=== PATIENT | female | born 1945 | race Asian ===

== ENCOUNTER 2023-03-17 09:53 | Inpatient (IN) | payer OTHER ==
[2023-03-17] MEDS ORDERED: ONDANSETRON 4 MG/2 ML VIAL IVPUSH ONE (10:44)
[2023-03-17] MEDS ORDERED: SODIUM CHLORIDE 0.9% 500 ML INFUS.BAG IV ONE (10:44)
[2023-03-17] MEDS ORDERED: ONDANSETRON 4 MG/2 ML VIAL ONE (11:06)
[2023-03-17 11:39] LABS: BASO % 0.9 % (0-2.0); EOS % 0.1 % (0-4.5); HEMATOCRIT 36.5 % (32.4-45.2); HEMOGLOBIN 12.2 GM/dL (10.7-15.3); LYMPH % 16.4 % (8-40); MCHC 33.5 g/dl (32.0-36.0); MEAN CELL VOLUME 89.5 fl (80-96); MEAN PLT VOLUME 7.5 fl (7.5-11.1); MONO % 14.4 % (3.8-10.2); NEUT % 68.2 % (42.8-82.8); PLATELET COUNT 309 10^3/uL (134-434); RBC 4.08 M/mm3 (3.60-5.2); RDW 13.1 % (11.6-15.6); WHITE BLOOD COUNT 4.2 K/mm3 (4.0-10.0)
[2023-03-17 11:55] LABS: EPI CELLS 2 /uL (0-25.1); HYALINE CASTS 1 /uL (0-3.1); URINE APPEARANCE CLEAR; URINE BACTERIA >9,000 /uL (0-1359); URINE BILIRUBIN NEGATIVE (NEGATIVE); URINE COLOR YELLOW; URINE GLUCOSE (UA) NEGATIVE (NEGATIVE); URINE KETONE NEGATIVE (NEGATIVE); URINE LEUK ESTERASE 1+ (NEGATIVE); URINE NITRITE POSITIVE (NEGATIVE); URINE PROTEIN NEGATIVE (NEGATIVE); URINE RBC 13 /uL (0-23.9); URINE UROBILINOGEN 0.2 mg/dL (0.2-1.0); URINE WBC 161 /uL (0-25.8)
[2023-03-17 12:00] LABS: POTASSIUM 4.3 mmol/L (3.5-5.1)
[2023-03-17 12:02] LABS: ALBUMIN 3.4 g/dl (3.4-5.0); BLOOD UREA NITROGEN 16.1 mg/dL (7-18); CALCIUM 9.4 mg/dL (8.5-10.1)
[2023-03-17 12:05] LABS: CREATININE 0.7 mg/dL (0.55-1.3)
[2023-03-17 12:07] LABS: BILIRUBIN,TOTAL 0.2 mg/dL (0.2-1); TOT PROT 8.2 g/dl (6.4-8.2)
[2023-03-17] MEDS ORDERED: ONDANSETRON 4 MG/2 ML VIAL IVPUSH PRN (15:53)
[2023-03-17 18:43] VITALS: BMI 28.3
[2023-03-17 21:27] LABS: BLOOD UREA NITROGEN 14.6 mg/dL (7-18); CALCIUM 8.9 mg/dL (8.5-10.1)
[2023-03-17 21:31] LABS: CREATININE 0.8 mg/dL (0.55-1.3)
[2023-03-18] MEDS: ENOXAPARIN NA (PORCINE) 40 MG/0.4 ML DISP.SYRIN SQ SCH (09:49)
[2023-03-18] MEDS: amLODIPine BESYLATE 10 MG TABLET (FP) PO SCH (09:49)
[2023-03-18] MEDS: LOSARTAN POTASSIUM 25 MG TABLET PO SCH (09:50)
[2023-03-18] MEDS: CEFTRIAXONE 1 GM in DEXTROSE 5%-WATER - 50 ML IVPB SCH (09:50)
[2023-03-18 09:57] LABS: BASO % 1.1 % (0-2.0); EOS % 0.3 % (0-4.5); HEMATOCRIT 38.9 % (32.4-45.2); HEMOGLOBIN 12.8 GM/dL (10.7-15.3); LYMPH % 29.7 % (8-40); MCH 29.9 pg (25.7-33.7); MEAN CELL VOLUME 90.6 fl (80-96); MEAN PLT VOLUME 7.5 fl (7.5-11.1); MONO % 13.3 % (3.8-10.2); NEUT % 55.6 % (42.8-82.8); PLATELET COUNT 335 10^3/uL (134-434); RBC 4.29 M/mm3 (3.60-5.2); WHITE BLOOD COUNT 3.9 K/mm3 (4.0-10.0)
[2023-03-18 10:07] LABS: POTASSIUM 4.1 mmol/L (3.5-5.1)
[2023-03-18 10:12] LABS: ALBUMIN 3.4 g/dl (3.4-5.0); CALCIUM 9.3 mg/dL (8.5-10.1); MAGNESIUM 2.3 mg/dL (1.8-2.4)
[2023-03-18 10:14] LABS: BLOOD UREA NITROGEN 18.5 mg/dL (7-18)
[2023-03-18 10:15] LABS: PHOSPHOROUS 3.6 mg/dL (2.5-4.9)
[2023-03-18 10:16] LABS: BILIRUBIN,TOTAL 0.2 mg/dL (0.2-1); CREATININE 0.8 mg/dL (0.55-1.3)
[2023-03-18] MEDS ORDERED: guaiFENesin 200 MG/10 ML 10 ML UNIT-DOSE CUPS PO PRN (10:49)
[2023-03-18] MEDS ORDERED: REMDESIVIR 200 MG in SODIUM CHLORIDE 250 ML IVPB ONE (17:30)
[2023-03-19 08:25] LABS: BASO % 1.2 % (0-2.0); EOS % 0.7 % (0-4.5); HEMATOCRIT 37.9 % (32.4-45.2); HEMOGLOBIN 12.3 GM/dL (10.7-15.3); LYMPH % 31.1 % (8-40); MCH 29.8 pg (25.7-33.7); MCHC 32.5 g/dl (32.0-36.0); MEAN CELL VOLUME 91.8 fl (80-96); MEAN PLT VOLUME 8.3 fl (7.5-11.1); MONO % 12.1 % (3.8-10.2); NEUT % 54.9 % (42.8-82.8); PLATELET COUNT 332 10^3/uL (134-434); RBC 4.13 M/mm3 (3.60-5.2); WHITE BLOOD COUNT 4.1 K/mm3 (4.0-10.0)
[2023-03-19 08:54] LABS: POTASSIUM 3.8 mmol/L (3.5-5.1)
[2023-03-19 09:05] LABS: ALBUMIN 3.2 g/dl (3.4-5.0); BLOOD UREA NITROGEN 20.4 mg/dL (7-18); CALCIUM 9.2 mg/dL (8.5-10.1); MAGNESIUM 2.4 mg/dL (1.8-2.4)
[2023-03-19 09:07] LABS: CREATININE 0.8 mg/dL (0.55-1.3)
[2023-03-19 09:09] LABS: BILIRUBIN,TOTAL 0.3 mg/dL (0.2-1); TOT PROT 7.8 g/dl (6.4-8.2)
[2023-03-19] MEDS ORDERED: REMDESIVIR 100 MG in SODIUM CHLORIDE 270 ML IVPB SCH (10:00)
[2023-03-19] MEDS ORDERED: ALBUTEROL SO4 2.5/IPRATROPIUM 0.5 INH SOL 3 ML VIAL.NEB. NEB PRN (10:32)
[2023-03-19] MEDS ORDERED: BENZOCAINE/MENTH/CETYLPYRD CL 1 EACH LOZENGE MM PRN (10:32)
[2023-03-19] MEDS ORDERED: SODIUM CHLORIDE FOR INHALATION 3 ML VIAL.NEB IH PRN (10:32)
[2023-03-19] MEDS: LOSARTAN POTASSIUM 25 MG TABLET PO SCH (10:43)
[2023-03-19] MEDS: amLODIPine BESYLATE 10 MG TABLET (FP) PO SCH (10:43)
[2023-03-19] MEDS: CEFTRIAXONE 1 GM in DEXTROSE 5%-WATER - 50 ML IVPB SCH (10:43)
[2023-03-19] MEDS: ENOXAPARIN NA (PORCINE) 40 MG/0.4 ML DISP.SYRIN SQ SCH (10:43)
[2023-03-19] MEDS: REMDESIVIR 100 MG in SODIUM CHLORIDE 250 ML IVPB SCH (12:16)
[2023-03-20 09:02] LABS: BASO % 1.3 % (0-2.0); EOS % 0.5 % (0-4.5); HEMATOCRIT 35.9 % (32.4-45.2); HEMOGLOBIN 11.9 GM/dL (10.7-15.3); LYMPH % 37.3 % (8-40); MCH 29.9 pg (25.7-33.7); MCHC 33.1 g/dl (32.0-36.0); MEAN CELL VOLUME 90.4 fl (80-96); MEAN PLT VOLUME 7.8 fl (7.5-11.1); MONO % 9.7 % (3.8-10.2); NEUT % 51.2 % (42.8-82.8); PLATELET COUNT 299 10^3/uL (134-434); RBC 3.97 M/mm3 (3.60-5.2); RDW 13.5 % (11.6-15.6); WHITE BLOOD COUNT 3.5 K/mm3 (4.0-10.0)
[2023-03-20 09:27] LABS: POTASSIUM 4.2 mmol/L (3.5-5.1)
[2023-03-20 09:28] LABS: BLOOD UREA NITROGEN 21.6 mg/dL (7-18); CALCIUM 8.7 mg/dL (8.5-10.1); MAGNESIUM 2.4 mg/dL (1.8-2.4)
[2023-03-20 09:29] LABS: ALBUMIN 3.1 g/dl (3.4-5.0)
[2023-03-20 09:32] LABS: CREATININE 0.8 mg/dL (0.55-1.3)
[2023-03-20 09:33] LABS: BILIRUBIN,TOTAL 0.2 mg/dL (0.2-1); TOT PROT 7.1 g/dl (6.4-8.2)
[2023-03-20] MEDS: LOSARTAN POTASSIUM 25 MG TABLET PO SCH (09:33)
[2023-03-20] MEDS: amLODIPine BESYLATE 10 MG TABLET (FP) PO SCH (09:33)
[2023-03-20] MEDS: REMDESIVIR 100 MG in SODIUM CHLORIDE 250 ML IVPB SCH (09:33)
[2023-03-20] MEDS: ENOXAPARIN NA (PORCINE) 40 MG/0.4 ML DISP.SYRIN SQ SCH (09:34)
[2023-03-20] MEDS: CEFTRIAXONE 1 GM in DEXTROSE 5%-WATER - 50 ML IVPB SCH (09:35)
[2023-03-21 07:28] VITALS: RESP 18
[2023-03-21 09:11] LABS: BASO % 0.9 % (0-2.0); EOS % 0.6 % (0-4.5); HEMATOCRIT 36.9 % (32.4-45.2); HEMOGLOBIN 12.3 GM/dL (10.7-15.3); LYMPH % 32.3 % (8-40); MCH 30.4 pg (25.7-33.7); MCHC 33.2 g/dl (32.0-36.0); MEAN CELL VOLUME 91.7 fl (80-96); MEAN PLT VOLUME 7.8 fl (7.5-11.1); MONO % 9.2 % (3.8-10.2); PLATELET COUNT 311 10^3/uL (134-434); RBC 4.03 M/mm3 (3.60-5.2); RDW 13.4 % (11.6-15.6); WHITE BLOOD COUNT 4.5 K/mm3 (4.0-10.0)
[2023-03-21] MEDS: amLODIPine BESYLATE 10 MG TABLET (FP) PO SCH (09:17)
[2023-03-21] MEDS: LOSARTAN POTASSIUM 25 MG TABLET PO SCH (09:17)
[2023-03-21] MEDS: CEFTRIAXONE 1 GM in DEXTROSE 5%-WATER - 50 ML IVPB SCH (09:18)
[2023-03-21] MEDS: ENOXAPARIN NA (PORCINE) 40 MG/0.4 ML DISP.SYRIN SQ SCH (09:18)
[2023-03-21 09:26] LABS: POTASSIUM 4.3 mmol/L (3.5-5.1)
[2023-03-21 09:29] LABS: ALBUMIN 3.1 g/dl (3.4-5.0); BLOOD UREA NITROGEN 18.2 mg/dL (7-18); CALCIUM 8.8 mg/dL (8.5-10.1); MAGNESIUM 2.4 mg/dL (1.8-2.4)
[2023-03-21 09:32] LABS: CREATININE 0.7 mg/dL (0.55-1.3)
[2023-03-21 09:33] LABS: BILIRUBIN,TOTAL 0.2 mg/dL (0.2-1); TOT PROT 7.4 g/dl (6.4-8.2)
[2023-03-21] MEDS ORDERED: CEPHALEXIN MONOHYDRATE 500 MG CAPSULE (UD) PO ONE (10:30)
[2023-03-21 10:53] VITALS: BP 127/54; PULSE 56; TEMP 98.3
== END 2023-03-21 13:03 | disposition home health service (06) | DRG 178 ==
LOC: JER 09:53 → JERBED 15:10 → OBSVTOIN 15:43 → J8W 18:13
PROVIDERS: ADMIT Internal Medicine; ATTEND Nurse Practitioner Acute Care
PROC: XW033E5 Introduction of Remdesivir Anti-infective into Peripheral Vein, Percutaneous Approach, New Technology Group 5 (ICD-10-PCS; principal; 2023-03-17)
DX: U07.1 COVID-19 (principal); E87.1 Hypo-osmolality and hyponatremia; N39.0 Urinary tract infection, site not specified; E86.0 Dehydration; I10 Essential (primary) hypertension
CPT/HCPCS: 0241U-QW; 36415; 71045-TC-FY; 80048; 80053; 81003; 82436; 82570; 83690; 83735; 84100; 84300; 84484; 85025; 86140; 87086; 87186; 93005; 93010; 99285-25; C9399; G0378

== ENCOUNTER 2023-05-05 23:47 | Observation (INO) | payer OTHER ==
[2023-05-06 00:02] VITALS: BMI 36.2
[2023-05-06] MEDS ORDERED: dilTIAZem HCL 50 MG/10 ML - 10 ML VIAL IVPUSH ONE (00:32)
[2023-05-06] MEDS ORDERED: DEXAMETHASONE SOD PHOSPHATE 10 MG/1 ML VIAL IVPUSH ONE (00:33)
[2023-05-06] MEDS ORDERED: dilTIAZem HCL 125 MG/25 ML - 25 ML VIAL ONE (00:52)
[2023-05-06] MEDS ORDERED: DEXAMETHASONE SOD PHOSPHATE 10 MG/1 ML VIAL ONE (00:52)
[2023-05-06 01:46] LABS: BASO % 0.7 % (0-2.0); EOS % 2.7 % (0-4.5); HEMOGLOBIN 12.4 GM/dL (10.7-15.3); MCH 30.5 pg (25.7-33.7); MCHC 33.6 g/dl (32.0-36.0); MEAN PLT VOLUME 7.4 fl (7.5-11.1); MONO % 7.8 % (3.8-10.2); NEUT % 70.8 % (42.8-82.8); PLATELET COUNT 391 10^3/uL (134-434); RBC 4.07 M/mm3 (3.60-5.2); RDW 13.9 % (11.6-15.6); WHITE BLOOD COUNT 9.6 K/mm3 (4.0-10.0)
[2023-05-06 01:52] LABS: INR 0.99 (0.83-1.09); PROTHROMBIN TIME (PATIENT) 11.5 SEC (9.7-13.0)
[2023-05-06 01:55] LABS: ACTIVATED PTT 31.5 SECONDS (25.2-36.5)
[2023-05-06 02:09] LABS: THROAT:GRP A STREP NOT DETECTED (NOTDETECTED)
[2023-05-06 02:31] LABS: POTASSIUM 3.6 mmol/L (3.5-5.1)
[2023-05-06 02:33] LABS: CALCIUM 9.3 mg/dL (8.5-10.1)
[2023-05-06 02:34] LABS: ALBUMIN 3.4 g/dl (3.4-5.0); BLOOD UREA NITROGEN 19.3 mg/dL (7-18); MAGNESIUM 2.2 mg/dL (1.8-2.4)
[2023-05-06 02:37] LABS: CREATININE 0.7 mg/dL (0.55-1.3)
[2023-05-06 02:38] LABS: BILIRUBIN,TOTAL 0.2 mg/dL (0.2-1)
[2023-05-06 02:42] LABS: N-TERMINAL BNP 434.1 pg/ml (5-450)
[2023-05-06] MEDS ORDERED: ALBUTEROL SO4 HFA INHALER IH PRN (04:24)
[2023-05-06 08:14] LABS: CHOLESTEROL 156 mg/dL (50-200)
[2023-05-06 08:16] LABS: LDL CHOLESTEROL (ONLY SJRH) 41 mg/dL (5-100)
[2023-05-06 08:17] LABS: HDL CHOLESTEROL 93 mg/dL (40-60)
[2023-05-06] MEDS ORDERED: TRIAMTERENE AND HCTZ - 37.5 MG/25 MG CAPSULE PO SCH (10:00)
[2023-05-06] MEDS ORDERED: APIXABAN 5 MG TABLET ONE (10:03)
[2023-05-06] MEDS ORDERED: amLODIPine BESYLATE 10 MG TABLET (FP) ONE (10:04)
[2023-05-06] MEDS ORDERED: LOSARTAN POTASSIUM 25 MG TABLET ONE (10:04)
[2023-05-06] MEDS ORDERED: CHOLECALCIFEROL (VIT D3) 1,000 UNIT (25 MCG) TABLET ONE (10:04)
[2023-05-06] MEDS: LOSARTAN POTASSIUM 25 MG TABLET PO SCH (10:18)
[2023-05-06] MEDS: APIXABAN 5 MG TABLET PO SCH ×2 (10:18→22:23)
[2023-05-06] MEDS: amLODIPine BESYLATE 10 MG TABLET (FP) PO SCH (10:18)
[2023-05-06] MEDS: CHOLECALCIFEROL (VIT D3) 1,000 UNIT (25 MCG) TABLET PO SCH (10:18)
[2023-05-06] MEDS: MULTIVITAMINS THER W-MINERALS COMBO TABLET (FP) PO SCH (11:40)
[2023-05-06] MEDS: guaiFENesin 200 MG/10 ML 10 ML UNIT-DOSE CUPS PO PRN ×2 (17:55→23:57)
[2023-05-07 04:36] VITALS: TEMP 98.1
[2023-05-07] MEDS: guaiFENesin 200 MG/10 ML 10 ML UNIT-DOSE CUPS PO PRN (06:33)
[2023-05-07 06:47] VITALS: BP 143/75; PULSE 81; RESP 19
[2023-05-07] MEDS ORDERED: metoPROLOL SUCCINATE 25 MG TAB.SR.24H (FP) PO SCH (10:00)
[2023-05-07] MEDS ORDERED: FUROSEMIDE 40 MG/4 ML INJECTABLE VIAL IVPUSH SCH (10:00)
[2023-05-07] MEDS: amLODIPine BESYLATE 10 MG TABLET (FP) PO SCH (10:42)
[2023-05-07] MEDS: MULTIVITAMINS THER W-MINERALS COMBO TABLET (FP) PO SCH (10:42)
[2023-05-07] MEDS: LOSARTAN POTASSIUM 25 MG TABLET PO SCH (10:42)
[2023-05-07] MEDS: APIXABAN 5 MG TABLET PO SCH (10:42)
[2023-05-07] MEDS: CHOLECALCIFEROL (VIT D3) 1,000 UNIT (25 MCG) TABLET PO SCH (10:42)
== END 2023-05-07 13:31 | disposition home health service (06) ==
LOC: JER 23:47 → JERBED 05-06 01:59 → J4W 05-06 15:38
PROVIDERS: ADMIT Internal Medicine; ATTEND Internal Medicine
PROC: 3E033GC Introduction of Other Therapeutic Substance into Peripheral Vein, Percutaneous Approach (ICD-10-PCS; principal; 2023-05-06)
DX: I48.91 Unspecified atrial fibrillation (principal); I11.0 Hypertensive heart disease with heart failure; I50.31 Acute diastolic (congestive) heart failure; Z96.653 Presence of artificial knee joint, bilateral; R49.0 Dysphonia; Z86.16 Personal history of COVID-19; G45.9 Transient cerebral ischemic attack, unspecified; E87.1 Hypo-osmolality and hyponatremia; Z87.440 Personal history of urinary (tract) infections
CPT/HCPCS: 0241U-QW; 36415; 71045-TC-FY; 71250-TC; 71275-TC; 80053; 80061; 83735; 83880; 84443; 84484; 85025; 85610; 85730; 87086; 87186; 87651; 93005; 93010; 93306-TC; 96374; 96375; 96376; 99285-25; G0378; J1100; Q9967